=== PATIENT | female | born 1955 | race American Indian/Alaskan Native ===

== ENCOUNTER 2020-08-28 20:35 | Emergency (ER) | payer OTHER ==
[~2020-08-28] VITALS: Ht 162.6 cm; Wt 64.5 kg
[2020-08-28 23:00] VITALS: BP 119/61
== END 2020-08-28 23:10 | disposition left against medical advice (07) ==
LOC: EMS 20:35
DX: R13.10 Dysphagia, unspecified (principal); F17.210 Nicotine dependence, cigarettes, uncomplicated
CPT/HCPCS: Z7502